=== PATIENT | male | born 1990 | race Caucasian/White ===

== ENCOUNTER 2016-11-27 08:43 | Emergency (ER) | payer SELFPAY ==
[2016-11-27] MEDS ORDERED: Ondansetron INJ* 2 MG/ML VIAL IV ONE (09:09)
[2016-11-27] MEDS ORDERED: Morphine INJ* 4 MG/ML 1 ML CARPUJECT IV ONE (09:09)
[2016-11-27] MEDS ORDERED: Ketorolac INJ* 30 MG/ML 1 ML VIAL IM ONE (09:09)
[2016-11-27] MEDS: NS 0.9% 1000 ML* 2,000 ML IV ONE ×2 (09:20→10:31)
[2016-11-27 09:38] LABS: Hematocrit 44 % (42-52); Hemoglobin 14.5 g/dl (14.0-18.0); Mean Corpuscular HGB Conc 33 g/dl (31-36); Mean Corpuscular Hemoglobin 28 pg (27-31); Mean Corpuscular Volume 85 fL (80-94); Mean Platelet Volume 8 um3 (7.4-10.4); Red Blood Count 5.11 10^6/ul (4.0-5.4); Red Cell Distribution Width 14 % (10.5-15); White Blood Count 7.6 10^3/ul (3.5-10.8)
[2016-11-27 09:48] LABS: ALT 12 U/L (7-52); AST 16 U/L (13-39); Albumin 4.3 g/dL (3.2-5.2); Alkaline Phosphatase 69 U/L (34-104); Anion Gap 7 mmol/L (2-11); BUN/Creatinine Ratio 9.2 (8-20); Blood Urea Nitrogen 11 mg/dL (6-24); C Reactive Protein < 1.00 mg/L (< 5.00); CO2 Carbon Dioxide 28 mmol/L (22-32); Calcium 9.3 mg/dL (8.6-10.3); Chloride 103 mmol/L (101-111); EGFR African American 94.1 (>60); EGFR Non-African American 73.2 (>60); Globulin 3.1 g/dL (2-4); Glucose 97 mg/dL (70-100); Lipase 21 U/L (11.0-82.0); Potassium 3.5 mmol/L (3.5-5.0); Sodium 138 mmol/L (133-145); Total Protein 7.4 g/dL (6.4-8.9)
--- NOTE | 2016-11-27 10:22 | RAD ---
Indication: Right lower quadrant pain. CT of the abdomen and pelvis was performed without oral or IV contrast administration. Coronal and sagittal reconstructed images were obtained. The lung bases demonstrate no pleural fluid, nodules or masses. Heart is of normal size without evidence of pericardial effusion. Liver is normal in size. No focal lesions or intrahepatic ductal dilatation is noted. The gallbladder demonstrates no gallstones, pericholecystic fluid or wall thickening. The spleen is normal in size. No adrenal masses are noted. No dilated loops of bowel are noted. The colon is filled with stool. The pancreas demonstrates no mass or pancreatic duct dilatation. The right kidney demonstrates mild enlargement with mild hydroureter. There is periureteral infiltration of fat. There is a calculi in the right ureterovesicular junction measuring up to 4 mm. The left kidney shows no hydronephrosis. Aorta and inferior vena cava are unremarkable. No retroperitoneal adenopathy is noted. No dilated bowel are noted. CT of the pelvis demonstrates normal air-filled appendix. No free fluid is identified. No pelvic adenopathy is identified. The prostate and seminal vesicles are unremarkable. No hernias are noted. IMPRESSION: RIGHT HYDRONEPHROSIS AND HYDROURETER WITH A 4 MM CALCULUS IN THE RIGHT URETEROVESICULAR JUNCTION. NORMAL APPENDIX. NO OTHER MASSES OR FLUID COLLECTIONS ARE NOTED.
[2016-11-27 12:55] LABS: Urine Bacteria Absent (Absent); Urine Bilirubin Negative (Negative); Urine Glucose Negative (Negative); Urine Nitrite Negative (Negative)
[2016-11-27 14:16] VITALS: BP 114/76
--- NOTE | 2016-11-27 15:39 | ED ---
Santa Mendez Rebecca, scribed for Randolph Duran MD on 11/27/16 at 0911 . Abdominal Pain/Male - HPI Summary HPI Summary: Pt is a 26 y/o M who presents ot ED c/o abd pain. Pain began suddenly this morning at 0800 and has been constant since onset. Pain is in the RLQ with radiation into the testicles. Pain is currently ranked 7/10 and characterized as sharp. Sx aggravated and alleviated by nothing. Additionally c/o hematuria and a rash on the chest. Denies nausea, dysuria, difficulty urinating, lumps in the groin and back pain. Denies fever, chills, cough, sore throat, congestion, CP, SOB. Reports another episode of hematuria 4 days ago, which resolved spontaneously the same day. No sleep disturbance last night. No PMHx or FHx kidney stones. No PSHx on the abdomen. Is not on blood thinners. Does not have a hernia, to his knowledge. - History of Current Complaint Chief Complaint: EDAbdPain Stated Complaint: BLOOD IN URINE Time Seen by Provider: 11/27/16 09:03 Hx Obtained From: Patient Onset/Duration: Sudden Onset, Lasting Hours - 1 hour, Still Present Timing: Constant Severity Initially: Moderate Severity Currently: Moderate Pain Intensity: 7 Pain Scale Used: 0-10 Numeric Location: Discrete At: RLQ Radiates: Yes Radiates to: Inguinal Character: Sharp Aggravating Factor(s): Nothing Alleviating Factor(s): Nothing Associated Signs And Symptoms: Positive: Urinary Symptoms - Hematuria, Other - Rash on chest. Negative: Fever, Cough, Chest Pain, Back Pain, Nausea - Allergies/Home Medications Allergies/Adverse Reactions: Allergies Allergy/AdvReac Type Severity Reaction Status Date / Time No Known Allergies Allergy Verified 11/27/16 08:46 PMH/Surg Hx/FS Hx/Imm Hx Previously Healthy: Yes Endocrine/Hematology History: Denies: Hx Diabetes Cardiovascular History: Denies: Hx Hypertension Infectious Disease History: No Infectious Disease History: Denies: Traveled Outside the [place] in Last 30 Days - Family History Known Family History: Positive: Other - No FHx kidney stones - Social History Alcohol Use: Rare Substance Use Type: Reports: None Smoking Status (MU): Never Smoked Tobacco Review of Systems Negative: Fever, Chills Negative: Sore Throat Negative: Chest Pain Negative: Shortness Of Breath, Cough Positive: Abdominal Pain - RLQ. Negative: Nausea Positive: hematuria, other - Denies difficulty urinating and lumps in groin. Negative: dysuria Negative: Arthralgia - Denies back pain Positive: Rash - on chest All Other Systems Reviewed And Are Negative: Yes Physical Exam - Summary Physical Exam Summary: The patient is well-nourished in no acute distress and in no acute pain. The skin is warm and dry and skin color reflects adequate perfusion. Good capillary refill. HEENT: The head is normocephalic and atraumatic. The pupils are equal and reactive. The conjunctivae are clear and without drainage. Nares are patent with rhinorrhea noted. Mouth reveals moist mucous membranes and the throat is without erythema and exudate. The external ears are intact. The ear canals are patent and without drainage. The tympanic membranes are intact. Neck is supple with full range of motion and non-tender. There are no carotid bruits. There is no neck vein distension. Respiratory: Chest is non-tender. Lungs are clear to auscultation and breath sounds are symmetrical and equal. Cardiovascular: Hear is regular rate and rhythm. There is no murmur or rub auscultated. There is no peripheral edema and pulses are symmetrical and equal. Abdomen: The abdomen is soft. There are normal bowel sounds heard in all four quadrants and there is no organomegaly palpated. RLQ pain and some R flank pain. No reproducible testicular pain. No CVA tenderness. Musculoskeletal: There is no back pain noted. Extremities are non-tender with full range of motion. There is good capillary refill. There is no peripheral edema or calf tenderness elicited. Neurological: Patient is alert and oriented to person, place and time. The patient has symmetrical motor strength in all four extremities. Psychiatric: The patient has an appropriate affect and does not exhibit any anxiety or depression. Triage Information Reviewed: Yes Vital Signs On Initial Exam: Initial Vitals Temp Pulse Resp BP Pulse Ox 98.4 F 62 16 121/69 100 11/27/16 08:46 11/27/16 08:46 11/27/16 08:46 11/27/16 08:46 11/27/16 08:46 Vital Signs Reviewed: Yes Diagnostics - Vital Signs Vital Signs Temp Pulse Resp BP Pulse Ox 11/27/16 08:46 98.4 F 62 16 121/69 100 - Laboratory Lab Results: Lab Results 11/27/16 11/27/16 11/27/16 Range/Units 09:10 09:10 09:10 WBC 7.6 (3.5-10.8) 10^3/ul RBC 5.11 (4.0-5.4) 10^6/ul Hgb 14.5 (14.0-18.0) g/dl Hct 44 (42-52) % MCV 85 (80-94) fL MCH 28 (27-31) pg MCHC 33 (31-36) g/dl RDW 14 (10.5-15) % Plt Count 216 (150-450) 10^3/ul MPV 8 (7.4-10.4) um3 Neut % (Auto) 60.1 (38-83) % Lymph % (Auto) 29.7 (25-47) % [place] % (Auto) 6.9 (1-9) % Eos % (Auto) 3.0 (0-6) % Baso % (Auto) 0.3 (0-2) % Absolute Neuts (auto) 4.5 (1.5-7.7) 10^3/ul Absolute Lymphs (auto) 2.2 (1.0-4.8) 10^3/ul Absolute Monos (auto) 0.5 (0-0.8) 10^3/ul Absolute Eos (auto) 0.2 (0-0.6) 10^3/ul Absolute Basos (auto) 0 (0-0.2) 10^3/ul Absolute Nucleated RBC 0 10^3/ul Nucleated RBC % 0 INR (Anticoag Therapy) (0.89-1.11) Sodium 138 (133-145) mmol/L Potassium 3.5 (3.5-5.0) mmol/L Chloride 103 (101-111) mmol/L Carbon Dioxide 28 (22-32) mmol/L Anion Gap 7 (2-11) mmol/L BUN 11 (6-24) mg/dL Creatinine 1.20 H (0.67-1.17) mg/dL Est GFR ( Amer) 94.1 (>60) Est GFR (Non-Af Amer) 73.2 (>60) BUN/Creatinine Ratio 9.2 (8-20) Glucose 97 (70-100) mg/dL Lactic Acid 1.5 (0.5-2.0) mmol/L Calcium 9.3 (8.6-10.3) mg/dL Total Bilirubin 0.50 (0.2-1.0) mg/dL AST 16 (13-39) U/L ALT 12 (7-52) U/L Alkaline Phosphatase 69 (34-104) U/L C-Reactive Protein < 1.00 (< 5.00) mg/L Total Protein 7.4 (6.4-8.9) g/dL Albumin 4.3 (3.2-5.2) g/dL Globulin 3.1 (2-4) g/dL Albumin/Globulin Ratio 1.4 (1-3) Lipase 21 (11.0-82.0) U/L Urine Color Urine Appearance Urine pH (5-9) Ur Specific [place] (1.010-1.030) Urine Protein (Negative) Urine Ketones (Negative) Urine Blood (Negative) Urine Nitrate (Negative) Urine Bilirubin (Negative) Urine Urobilinogen (Negative) Ur Leukocyte Esterase (Negative) Urine WBC (Auto) (Absent) Urine RBC (Auto) (Absent) Urine Bacteria (Absent) Urine Glucose (Negative) 11/27/16 11/27/16 Range/Units 09:10 12:30 WBC (3.5-10.8) 10^3/ul RBC (4.0-5.4) 10^6/ul Hgb (14.0-18.0) g/dl Hct (42-52) % MCV (80-94) fL MCH (27-31) pg MCHC (31-36) g/dl RDW (10.5-15) % Plt Count (150-450) 10^3/ul MPV (7.4-10.4) um3 Neut % (Auto) (38-83) % Lymph % (Auto) (25-47) % [place] % (Auto) (1-9) % Eos % (Auto) (0-6) % Baso % (Auto) (0-2) % Absolute Neuts (auto) (1.5-7.7) 10^3/ul Absolute Lymphs (auto) (1.0-4.8) 10^3/ul Absolute Monos (auto) (0-0.8) 10^3/ul Absolute Eos (auto) (0-0.6) 10^3/ul Absolute Basos (auto) (0-0.2) 10^3/ul Absolute Nucleated RBC 10^3/ul Nucleated RBC % INR (Anticoag Therapy) 0.96 (0.89-1.11) Sodium (133-145) mmol/L Potassium (3.5-5.0) mmol/L Chloride (101-111) mmol/L Carbon Dioxide (22-32) mmol/L Anion Gap (2-11) mmol/L BUN (6-24) mg/dL Creatinine (0.67-1.17) mg/dL Est GFR ( Amer) (>60) Est GFR (Non-Af Amer) (>60) BUN/Creatinine Ratio (8-20) Glucose (70-100) mg/dL Lactic Acid (0.5-2.0) mmol/L Calcium (8.6-10.3) mg/dL Total Bilirubin (0.2-1.0) mg/dL AST (13-39) U/L ALT (7-52) U/L Alkaline Phosphatase (34-104) U/L C-Reactive Protein (< 5.00) mg/L Total Protein (6.4-8.9) g/dL Albumin (3.2-5.2) g/dL Globulin (2-4) g/dL Albumin/Globulin Ratio (1-3) Lipase (11.0-82.0) U/L Urine Color Nydia Urine Appearance Cloudy Urine pH 5.0 (5-9) Ur Specific [place] 1.029 (1.010-1.030) Urine Protein 2+(100 mg/dl) H (Negative) Urine Ketones Negative (Negative) Urine Blood 3+ H (Negative) Urine Nitrate Negative (Negative) Urine Bilirubin Negative (Negative) Urine Urobilinogen Negative (Negative) Ur Leukocyte Esterase Negative (Negative) Urine WBC (Auto) Trace(0-5/hpf) (Absent) Urine RBC (Auto) 3+(>10/hpf) H (Absent) Urine Bacteria Absent (Absent) Urine Glucose Negative (Negative) Result Diagrams: 11/27/16 09:10 11/27/16 09:10 Lab Statement: Any lab studies that have been ordered have been reviewed, and results considered in the medical decision making process. - CT CT Abd/Pel CT Interpretation Completed By: Radiologist - RIGHT HYDRONEPHROSIS AND HYDROURETER WITH A 4 MM CALCULUS IN THE RIGHT URETEROVESICULAR JUNCTION. NORMAL APPENDIX. NO OTHER MASSES OR FLUID COLLECTIONS ARE NOTED. Abdominal Pain Fem Course/Dx - Course Assessment/Plan: Pt is a 26 y/o M with a CC of abdominal pain since 0800 this a.m. He additionally c/o hematuria and rash on his chest. Denies nausea, dysuria , difficulty urinating, lumps in the groin and back pain. Denies fever, chills, cough, sore throat, congestion, CP, SOB. CT Abd/Pel reveals: "RIGHT HYDRONEPHROSIS AND HYDROURETER WITH A 4 MM CALCULUS IN THE RIGHT URETEROVESICULAR JUNCTION. NORMAL APPENDIX. NO OTHER MASSES OR FLUID COLLECTIONS ARE NOTED." Pt will be d/c to home with a dx of distal right ureteral calculus. - Diagnoses Differential Diagnosis/HQI/PQRI: Renal Colic, Ureteral Stone, Urinary Tract Infection Provider Diagnoses: Right distal ureteral calculus Discharge - Discharge Plan Condition: Stable Disposition: HOME Prescriptions: oxyCODONE/Acetamin 5/325 MG* [Percocet 5/325 TAB*] 1 tab PO Q6H PRN #20 tab MDD 4 PRN Reason: pain Patient Education Materials: Kidney Stones (ED) Forms: *Work Release Referrals: Osmin Bernabe MD [Medical Doctor] - 3 Days (Follow up with Dr. Bernabe within the next 3 days. ) Additional Instructions: Strain all urine. Increase fluid intake. Take Percocet as needed for pain. The documentation as recorded by the Santa murcia Rebecca accurately reflects the service I personally performed and the decisions made by me, Randolph Duran MD.
== END 2016-11-27 14:13 | disposition home or self-care (01) ==
LOC: ED 08:43
DX: N20.1 Calculus of ureter (principal); R10.31 Right lower quadrant pain; R31.9 Hematuria, unspecified; R21 Rash and other nonspecific skin eruption
CPT/HCPCS: 36415; 74176; 80053; 81003; 81015; 83605; 83690; 85025; 85610; 86140; 96372; 96374; 99282; J1885; J2270; J2405

== ENCOUNTER 2017-05-24 17:27 | Emergency (ER) | payer SELFPAY ==
[2017-05-24 17:35] VITALS: BP 118/72
--- NOTE | 2017-05-24 19:51 | UC ---
Moises Mendez Alok, scribed for Emerald Caban MD on 05/24/17 at 1951 . Lower Extremity/Ankle HPI - HPI Summary HPI Summary: 26M presents to the [facility] with foot pain bilaterally. Pt states what began with left foot pain 4-5 months ago. Pt state pain on arch of foot to ankle. Pt states was walking with limp intermittent second to pain. Pt states now with similar pain in right foot. Pain on lateral aspect of sole in right. No fevers, chills. No rash. No knee, hip, back pain. 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 No analgesia taken. Pt states that his foot pain used to be worst in the morning and improve throughout the day but no longer improves throughout the day currently. PMHx includes h/o heart murmur. Patient medications reviewed this visit. - History of Current Complaint Chief Complaint: UCLowerExtremity Stated Complaint: FOOT PAIN Time Seen by Provider: 05/24/17 19:17 Hx Obtained From: Patient Onset/Duration: Lasting Weeks, Still Present, Worse Since - 2 days ago Severity Initially: Moderate Severity Currently: Moderate Pain Intensity: 7 Pain Scale Used: 0-10 Numeric Aggravating Factor(s): Nothing Alleviating Factor(s): Nothing - Allergies/Home Medications Allergies/Adverse Reactions: Allergies Allergy/AdvReac Type Severity Reaction Status Date / Time No Known Allergies Allergy Verified 05/24/17 17:34 Home Medications: Home Medications NK [No Home Medications Reported] 05/24/17 [History Confirmed 05/24/17] PMH/Surg Hx/FS Hx/Imm Hx Previously Healthy: Yes Cardiovascular History: Other - h/o murmur Other Cardiovascular History: murmur - Surgical History Surgical History: None - Family History Known Family History: Positive: Other - No FHx kidney stones - Social History Occupation: Employed Full-time Lives: With Family Alcohol Use: Occasionally Substance Use Type: None Smoking Status (MU): Never Smoked Tobacco Review of Systems Constitutional: Negative Skin: Negative Eyes: Negative ENT: Negative Respiratory: Negative Cardiovascular: Negative Gastrointestinal: Negative Genitourinary: Negative Motor: Negative Neurovascular: Negative Musculoskeletal: Other: - foot pain bilaterally Neurological: Negative Psychological: Negative All Other Systems Reviewed And Are Negative: Yes Physical Exam Triage Information Reviewed: Yes Appearance: Well-Appearing, No Pain Distress, Well-Nourished Vital Signs: Initial Vital Signs Temp 97.5 F 05/24/17 17:30 Pulse 89 05/24/17 17:30 Resp 16 05/24/17 17:30 BP 118/72 05/24/17 17:30 Pulse Ox 100 05/24/17 17:30 Vital Signs Reviewed: Yes Eye Exam: Normal Eyes: Positive: Conjunctiva Clear ENT: Positive: Hearing grossly normal Neck exam: Normal Neck: Positive: Supple, Nontender Respiratory Exam: Normal Respiratory: Positive: Normal breath sounds, No respiratory distress, No accessory muscle use Cardiovascular Exam: Normal Cardiovascular: Positive: Pulses Normal, Other: - 2+ DP, PT CBT < 2 sec Musculoskeletal Exam: Normal Musculoskeletal: Positive: Other: - + flex/ext knee + flex/ext demi + great toe extension with mild discomfort sole foot b/l left foot: pain along arch tracking to achilless - no pain at insertion мария right foot: mild TTP lateral aspect sole of foot. No crepitus. no edema b/l pt with shallow arch Neurological Exam: Normal Psychological Exam: Normal Diagnostics - Radiology Foot XRAY Xray Interpretation: Positive (See Comments) - IMPRESSION: Negative bilateral foot radiographs. Radiology Interpretation Completed By: Radiologist Lower Extremity Course/Dx - Course Course Of Treatment: Pt presents with progressive discomfort b/l feet. left arch to achilles, right lateral sole. Suspect pt with component of plantar fascitis on left and now with opain on right second to gait adjustment. PT also with shallow arches. imaging reveals no spurs. Recommend pt motrin, arch supports, stretch, ice. PCP f.u. pt and spouse comfortable and in agreement with plan - Differential Dx/Diagnosis Provider Diagnoses: left plantar fascitis Discharge - Discharge Plan Condition: Stable Disposition: HOME Patient Education Materials: Plantar Fasciitis Exercises (GEN), Plantar Fasciitis (ED) Referrals: [facility] [place] [place] [facility]ERR[facility] [Outside] No Primary Care Phys,NOPCP [Primary Care Provider] - Additional Instructions: - Okay to alternate ibuprofen (Advil, Motrin) and tylenol every 3 hours as needed for pain. Take with food. - Okay to apply ice (wrapped in a towel) 2-3 times a day for pain and swelling - wear comfortable shoes with insert supports - contact the physician referral center number provider to establish with a primary care provider Contact the physician referral or return with questions or concerns The documentation as recorded by the Moises murcia Alok accurately reflects the service I personally performed and the decisions made by me, Emerald Caban MD.
--- NOTE | 2017-05-24 19:56 | RAD ---
Indication: Bilateral foot pain in the arch and bases of the fifth metatarsals for 3 months on the LEFT and 2 weeks on the RIGHT. Comparison: No relevant prior exams available on the [facility] [place] [place]. Technique: AP, oblique, and lateral views of the bilateral feet. Report: Normal articular alignment and preserved joint spaces bilaterally. Negative for fracture or radiographic stigmata of stress reaction. Bone island in the RIGHT first proximal phalanx. RIGHT os peroneum accessory ossicle. Unremarkable soft tissue contours. IMPRESSION: Negative bilateral foot radiographs.
[2017-05-24] MEDS ORDERED: Ibuprofen TAB* 600 MG PO ONE (20:02)
== END 2017-05-24 20:12 | disposition home or self-care (01) ==
LOC: UCEAST 17:27
DX: M72.2 Plantar fascial fibromatosis (principal); R01.1 Cardiac murmur, unspecified
CPT/HCPCS: 99212; A9270-GY; G0463